=== PATIENT | male | born 1985 | race Caucasian/White ===

== ENCOUNTER 2019-11-11 21:20 | Emergency (ER) | payer BC ==
[2019-11-11] MEDS ORDERED: Ketorolac 60 MG/2 ML SDV IM ONE (21:34)
[2019-11-11] MEDS ORDERED: Acetaminophen/oxyCODONE 325-5 MG Tab PO STA ×2 (21:34→22:27)
[2019-11-11] MEDS ORDERED: Ondansetron 4 MG Tab.DIS PO ONE (21:37)
--- NOTE | 2019-11-11 22:08 | EDM.PDOC ---
ED HPI GENERAL MEDICAL PROBLEM - General Chief Complaint: Flank Pain Stated Complaint: CONCERNED ABOUT KIDNEY STONE Time Seen by Provider: 11/11/19 21:50 Source of Information: Reports: Patient, RN History Limitations: Reports: No Limitations - History of Present Illness INITIAL COMMENTS - FREE TEXT/NARRATIVE: 34 yo male with a pHx of kidney stones about 18 mos ago presents with L flank pain with radiation to the testicle. His sx's began late today, worse as he was getting into bed. No fever. Stones he passed 18 mos ago reportedly were too small to analyze. Onset: Today, Sudden Onset Date: 11/11/19 Duration: Hour(s):, Waxing/Waning Location: Reports: Back (left low back) Quality: Reports: Stabbing Severity: Moderate Improves with: Reports: None Worsens with: Reports: Other (? stone movement) Context: Reports: Other (See HPI) Associated Symptoms: Reports: Nausea/Vomiting (no vomiting). Denies: Fever/ Chills, Rash Treatments WARD MAID: Reports: Other (see below) (none) Left Flank Pain Score (Numeric/FACES): 10 - Related Data Allergies Allergy/AdvReac Type Severity Reaction Status Date / Time No Known Allergies Allergy Verified 11/11/19 21:29 Home Meds: Home Meds NK [No Known Home Meds] 11/11/19 [History] Past Medical History Genitourinary History: Reports: Renal Calculus - Infectious Disease History Infectious Disease History: Reports: Chicken Pox - Past Surgical History HEENT Surgical History: Reports: Myringotomy w Tube(s) Social & Family History - Family History Family Medical History: Noncontributory - Tobacco Use Smoking Status *Q: Never Smoker - Caffeine Use Caffeine Use: Reports: Coffee, Soda - Recreational Drug Use Recreational Drug Use: No ED ROS GENERAL - Review of Systems Review Of Systems: See Below Constitutional: Reports: No Symptoms HEENT: Reports: No Symptoms Respiratory: Reports: No Symptoms Cardiovascular: Reports: No Symptoms Endocrine: Reports: No Symptoms GI/Abdominal: Reports: Nausea. Denies: Abdominal Pain, Anorexia, Black Stool, Bloody Stool, Constipation, Diarrhea, Distension, Flatus, Hematemesis, Hematochezia, Vomiting : Reports: Flank Pain. Denies: Discharge, Dysuria, Hematuria, Pain, Urgency, Urinary Retention Musculoskeletal: Reports: No Symptoms Skin: Reports: No Symptoms Neurological: Reports: No Symptoms ED EXAM, RENAL/ - Physical Exam Exam: See Below Exam Limited By: No Limitations General Appearance: Alert, WD/WN, Mild Distress Eye Exam: Bilateral Eye: Normal Inspection Ears: Normal External Exam, Normal Canal, Hearing Grossly Normal Nose: Normal Inspection, No Blood Throat/Mouth: Normal Inspection, Normal Lips, Normal Oropharynx, Normal Voice, No Airway Compromise Head: Atraumatic, Normocephalic Neck: Normal Inspection Respiratory/Chest: No Respiratory Distress, Lungs Clear, Normal Breath Sounds, No Accessory Muscle Use Cardiovascular: Regular Rate, Rhythm, No Edema GI/Abdominal: Normal Bowel Sounds, Soft, No Distention, Tender (mild LLQ tenderness). No: Non-Tender, Distended Back Exam: Normal Inspection. No: CVA Tenderness (R), CVA Tenderness (L) Extremities: Normal Inspection, Normal Range of Motion, Non-Tender, No Pedal Edema Neurological: Alert, Oriented, CN II-XII Intact, Normal Cognition, No Motor/ Sensory Deficits Psychiatric: Normal Affect, Normal Mood Skin Exam: Warm, Dry, Intact, Normal Color, No Rash Course - Vital Signs Last Recorded V/S: Last Vital Signs Temp 36.7 C 11/11/19 21:30 Pulse 78 11/11/19 22:16 Resp 18 11/11/19 22:16 BP 157/77 H 11/11/19 22:16 Pulse Ox 100 11/11/19 21:30 - Orders/Labs/Meds Labs: Laboratory Tests 11/11/19 Range/Units 21:21 Urine Color Yellow (YELLOW) Urine Appearance Clear (CLEAR) Urine pH 7.0 (5.0-8.0) Ur Specific [place] >= 1.030 (1.008-1.030) Urine Protein Negative (NEGATIVE) mg/dL Urine Glucose (UA) Negative (NEGATIVE) mg/dL Urine Ketones Trace H (NEGATIVE) mg/dL Urine Occult Blood Trace-intact H (NEGATIVE) Urine Nitrite Negative (NEGATIVE) Urine Bilirubin Negative (NEGATIVE) Urine Urobilinogen 0.2 (0.2-1.0) EU/dL Ur Leukocyte Esterase Negative (NEGATIVE) Urine RBC 5-10 H (0-5) Urine WBC Not seen (0-5) Ur Epithelial Cells Rare Amorphous Sediment Not seen Urine Bacteria Few Urine Mucus Moderate Urine Other Meds: Medications Discontinued Medications Generic Name Dose Route Start Last Admin Trade Name Emilia PRN Reason Stop Dose Admin Ketorolac Tromethamine 60 mg 11/11/19 21:34 11/11/19 21:46 Toradol IM 11/11/19 21:35 60 mg ONETIME ONE Administration Ondansetron HCl 4 mg 11/11/19 21:37 11/11/19 21:45 Zofran Odt PO 11/11/19 21:38 4 mg ONETIME ONE Administration Oxycodone/Acetaminophen 1 tab 11/11/19 21:34 11/11/19 21:48 Percocet 325-5 Mg PO 11/11/19 21:35 1 tab ONETIME STA Administration Oxycodone/Acetaminophen 1 tab 11/11/19 22:27 11/11/19 22:32 Percocet 325-5 Mg PO 11/11/19 22:28 1 tab ONETIME STA Administration Tamsulosin HCl 0.4 mg 11/11/19 22:28 11/11/19 22:33 Flomax PO 11/11/19 22:29 0.4 mg ONETIME ONE Administration - Re-Assessments/Exams Free Text/Narrative Re-Assessment/Exam: 11/11/19 23:03 Doing pretty good after the 2nd Percocet. Ready for discharge. Departure - Departure Time of Disposition: 23:05 Disposition: Home, Self-Care 01 Condition: Fair Clinical Impression: Kidney stone on left side - Discharge Information *PRESCRIPTION DRUG MONITORING PROGRAM REVIEWED*: No *COPY OF PRESCRIPTION DRUG MONITORING REPORT IN PATIENT ISAÍAS: No Instructions: Kidney Stones, [id number] Referrals: PCP,None [Primary Care Provider] - Forms: ED Department Discharge Additional Instructions: Strain urine and save any sediment. Drink more fluids so your urine is light yellow in concentration. Take ibuprofen 600 mg every 6 hrs with food starting after 4 am tonight. Take Percocet as needed for added pain relief. Take Zofran as needed for nausea control as needed. Recheck with your provider in a couple days. Sepsis Event Note - Evaluation Sepsis Screening Result: No Definite Risk - Focused Exam Vital Signs: Vital Signs Temp Pulse Resp BP Pulse Ox 11/11/19 22:16 78 18 157/77 H 11/11/19 21:30 36.7 C 113 H 18 179/97 H 100 Date Exam was Performed: 11/11/19 Time Exam was Performed: 23:03
[2019-11-11] MEDS ORDERED: Tamsulosin 0.4 MG Cap.ER PO ONE (22:28)
== END 2019-11-11 23:25 | disposition home or self-care (01) ==
LOC: JP.ED 21:20
DX: N20.0 Calculus of kidney (principal)
CPT/HCPCS: 81001; 96372; 99284; A9270; J1885